=== PATIENT | male | born 1965 | race Caucasian/White ===

== ENCOUNTER 2020-03-02 12:39 | Emergency (ER) | payer OTHER ==
[~2020-03-02] VITALS: Ht 182.9 cm; Wt 113.4 kg
[2020-03-02 12:59] VITALS: BP 141/86
== END 2020-03-02 14:06 | disposition left against medical advice (07) ==
LOC: ER 12:39
DX: H57.12 Ocular pain, left eye (principal); Z53.21 Procedure and treatment not carried out due to patient leaving prior to being seen by health care provider